=== PATIENT | male | born 1955 | race Caucasian/White ===

== ENCOUNTER → 2020-08-26 | Outpatient (CLI) | payer OTHER | LOC: EXRD 11:15 | DX: Z09 Encounter for follow-up examination after completed treatment for conditions other than malignant neoplasm (principal); Z87.891 Personal history of nicotine dependence | CPT/HCPCS: 71046 ==

== ENCOUNTER → 2021-04-11 | Outpatient (CLI) | payer OTHER | LOC: HEART 5 12:02 | DX: J44.9 Chronic obstructive pulmonary disease, unspecified (principal); F17.210 Nicotine dependence, cigarettes, uncomplicated; R94.2 Abnormal results of pulmonary function studies | CPT/HCPCS: 94060; 94729 ==

== ENCOUNTER → 2021-04-15 | Outpatient (CLI) | payer OTHER | LOC: SLEEP 14:45 | DX: G47.33 Obstructive sleep apnea (adult) (pediatric) (principal) | CPT/HCPCS: 95811 ==

== ENCOUNTER → 2021-04-29 | Outpatient (CLI) | payer OTHER | LOC: KOH-I 09:17 | DX: F17.210 Nicotine dependence, cigarettes, uncomplicated (principal) | CPT/HCPCS: 71271 ==

== ENCOUNTER → 2022-05-11 | Outpatient (CLI) | payer OTHER | LOC: KOH-I 04-13 10:00 | DX: F17.210 Nicotine dependence, cigarettes, uncomplicated (principal) | CPT/HCPCS: 71271 ==